=== PATIENT | male | born 1975 ===

== ENCOUNTER 2017-03-28 23:14 | Emergency (ER) | payer OTHER ==
[2017-03-28 23:15] VITALS: O2SAT 100
[2017-03-28 23:30] VITALS: TEMP 96.2
[2017-03-28] MEDS ORDERED: LORAZEPAM 0.5 MG TAB PO ONE (23:30)
[2017-03-28] MEDS ORDERED: LORAZEPAM 0.5 MG TAB ONE (23:37)
[2017-03-28 23:40] LABS: BASOPHILS % (AUTO) 1 % (0-3); EOSINOPHILS % (AUTO) 1 % (0-9); HEMATOCRIT 44 % (39-53); MEAN CORPUSCULAR HGB CONC 33.1 gm/dl (32.0-36.0); MEAN CORPUSCULAR VOLUME 86 fL (80-100); NEUTROPHILS % (AUTO) 56.4 % (37-80)
[2017-03-28 23:57] LABS: ALBUMIN 3.3 gm/dl (3.4-5.0); ALT 21 IU/L (14-63); CALCIUM 8.1 mg/dl (8.5-10.1); GLOM FILT RATE 87 mL/min (>60); SODIUM 140 mMol/L (136-145)
[2017-03-29 00:58] VITALS: BP 129/82; PULSE 48; RESP 18
== END 2017-03-29 00:33 ==
LOC: ED 23:14
DX: R07.9 Chest pain, unspecified (principal); F41.9 Anxiety disorder, unspecified
CPT/HCPCS: 36415; 71045; 80053; 84484; 85025; 93005; 99283; A9270-GY